=== PATIENT | male | born 1965 | race Caucasian/White ===

== ENCOUNTER → 2017-01-14 | Outpatient (CLI) | payer OTHER | LOC: FIMAGING 10:38 | PROVIDERS: ATTEND Psychiatry & Neurology Neurology | DX: S69.91XA Unspecified injury of right wrist, hand and finger(s), initial encounter (principal) ==

== ENCOUNTER → 2017-02-09 | Outpatient (CLI) | payer OTHER | LOC: FIMAGING 10:44 | PROVIDERS: ATTEND Orthopaedic Surgery Hand Surgery | DX: S63.511A Sprain of carpal joint of right wrist, initial encounter (principal); S63.591A Other specified sprain of right wrist, initial encounter; M65.88 Other synovitis and tenosynovitis, other site ==

== ENCOUNTER 2017-11-07 13:10 | Day surgery (SDC) | payer OTHER ==
[2017-11-07] MEDS ORDERED: IOPAMIDOL (ISOVUE-M 300) 15 ML VIAL ONE (14:16)
[2017-11-07] MEDS ORDERED: LIDOCAINE 1% 300 MG/30 ML SDV ONE (14:16)
[2017-11-07] MEDS ORDERED: TRIAMCINOLONE ACETONIDE 200 MG/5 ML MDV IM ONE (14:17)
== END 2017-11-07 14:50 | disposition home or self-care (01) ==
LOC: FIMAGING 13:10
PROVIDERS: ATTEND Physical Medicine & Rehabilitation Neuromuscular Medicine
DX: M54.16 Radiculopathy, lumbar region (principal); M54.31 Sciatica, right side
CPT/HCPCS: J3301; Q9967